=== PATIENT | female | born 1965 | race Caucasian/White ===

== ENCOUNTER 2018-07-16 14:23 | Emergency (ER) | payer OTHER ==
[2018-07-16 14:28] VITALS: BP 126/59; PULSE 54; TEMP 98.8; BMI 27.3
[2018-07-16] MEDS ORDERED: IBUPROFEN 600 MG TABLET (FP) PO ONE ×2 (15:03→15:14)
--- NOTE | 2018-07-16 15:42 | PDOC ---
History of Present Illness - General History Source: Patient Exam Limitations: No Limitations <[place]Mila - Last Filed: 07/16/18 15:59> - History of Present Illness Initial Comments: This patient is a 53 year old female, with PMHx of PA (3 yrs ago), HTN, HLD, who presents with right shoulder pain s/p slipping on ice today at 12:40 pm. She states after she fell, her shoulder was tingling but is no longer tingling. She reports decreased ROM secondary to pain. She did not take anything for the pain she states. Denies loc, hitting head, no headache. 07/16/18 15:43 <Lizet Schaffer - Last Filed: 07/16/18 16:11> - General Chief Complaint: Injury Stated Complaint: right shoulder pain s/p fell during work Past History - Past Medical History Asthma: No COPD: No CHF: No Diabetes: No HTN: Yes Psychiatric Problems: Yes (DEPRESSION/ANXIETY) - Surgical History Appendectomy: Yes Cholecystectomy: Yes Orthopedic Surgery: Yes (knee) - Immunization History Immunization Up to Date: Yes - Suicide/Smoking/Psychosocial Hx Smoking History: Never smoked Have you smoked in the past 12 months: No Number of Cigarettes Smoked Daily: 0 Cigars Per Day: 0 Hx Alcohol Use: No Drug/Substance Use Hx: No Substance Use Type: Prescribed <[place]Mila - Last Filed: 07/16/18 15:59> <Lizet Schaffer - Last Filed: 07/16/18 16:11> - Past Medical History Allergies/Adverse Reactions: Allergies Allergy/AdvReac Type Severity Reaction Status Date / Time No Known Allergies Allergy Verified 07/16/18 14:25 Home Medications: Ambulatory Orders Clonazepam [Klonopin] 1 mg PO PRN PRN 11/11/15 Escitalopram Oxalate [Lexapro -] 20 mg PO DAILY 11/11/15 Aspirin 81 mg PO DAILY 07/16/18 Atorvastatin Ca [Lipitor] 80 mg PO DAILY 07/16/18 Lamotrigine [Lamictal] 100 mg PO HS 07/16/18 Metoprolol Tartrate 25 mg PO DAILY 07/16/18 Review of Systems - Review of Systems Comments:: GENERAL/CONSTITUTIONAL: No fever or chills. No weakness. HEAD, EYES, EARS, NOSE AND THROAT: No change in vision. No ear pain or discharge. No sore throat. CARDIOVASCULAR: No chest pain or shortness of breath. RESPIRATORY: No cough, wheezing, or hemoptysis. GASTROINTESTINAL: No nausea, vomiting, diarrhea or constipation. GENITOURINARY: No dysuria, frequency, or change in urination. MUSCULOSKELETAL: +right shoulder. No neck or back pain. SKIN: No rash NEUROLOGIC: No headache, vertigo, loss of consciousness, or change in strength/ sensation. ENDOCRINE: No increased thirst. No abnormal weight change. HEMATOLOGIC/LYMPHATIC: No anemia, easy bleeding, or history of blood clots. ALLERGIC/IMMUNOLOGIC: No hives or skin allergy. 07/16/18 15:43 <Lizet Schaffer - Last Filed: 07/16/18 16:11> *Physical Exam - Vital Signs Last Vital Signs Temp Pulse Resp BP Pulse Ox 98.8 F 54 L 18 126/59 L 97 07/16/18 14:24 07/16/18 14:24 07/16/18 14:24 07/16/18 14:24 07/16/18 14:24 <Mila Coleman - Last Filed: 07/16/18 15:59> - Vital Signs Last Vital Signs Temp Pulse Resp BP Pulse Ox 98.8 F 54 L 18 126/59 L 97 07/16/18 14:24 07/16/18 14:24 07/16/18 14:24 07/16/18 14:24 07/16/18 14:24 - Physical Exam Comments: GENERAL: Awake, alert, and fully oriented, in no acute distress HEAD: No signs of trauma. NECK: Supple, no lymphadenopathy, JVD, or masses LUNGS: Breath sounds equal, clear to auscultation bilaterally. No wheezes, and no crackles HEART: Regular rate and rhythm, normal S1 and S2, no murmurs, rubs or gallops ABDOMEN: Soft, nontender, normoactive bowel sounds. No guarding, no rebound. No masses EXTREMITIES: Tenderness on palpation of right shoulder, no ecchymosis, no deformity. Full ROM at the elbow & wrist -> non-tender. Neurovascularly intact distally. No edema. No clubbing or cyanosis. No cords, erythema. NEUROLOGICAL: Cranial nerves II through XII grossly intact. Normal speech, normal gait SKIN: Warm, Dry, normal turgor, no rashes or lesions noted. <Lizet Schaffer - Last Filed: 07/16/18 16:11> Moderate Sedation - Procedure Monitoring Vital Signs: Procedure Monitoring Vital Signs Temperature 98.8 F 07/16/18 14:24 Pulse Rate 54 L 07/16/18 14:24 Respiratory Rate 18 07/16/18 14:24 Blood Pressure 126/59 L 07/16/18 14:24 O2 Sat by Pulse Oximetry (%) 97 07/16/18 14:24 <Mila Coleman - Last Filed: 07/16/18 15:59> - Procedure Monitoring Vital Signs: Procedure Monitoring Vital Signs Temperature 98.8 F 07/16/18 14:24 Pulse Rate 54 L 07/16/18 14:24 Respiratory Rate 18 07/16/18 14:24 Blood Pressure 126/59 L 07/16/18 14:24 O2 Sat by Pulse Oximetry (%) 97 07/16/18 14:24 <Lizet Schaffer - Last Filed: 07/16/18 16:11> ED Treatment Course - RADIOLOGY Radiology Studies Ordered: Category Date Time Status SHOULDER-RIGHT [RAD] Stat Radiology 07/16/18 15:02 Taken - Medications Given in the ED: ED Medications Discontinued Medications Generic Name Dose Route Start Last Admin Trade Name Freq PRN Reason Stop Dose Admin Ibuprofen 600 mg 07/16/18 15:03 07/16/18 15:21 Motrin - PO 07/16/18 15:04 600 mg ONCE ONE Administration <Mila Coleman - Last Filed: 07/16/18 15:59> - Medications Given in the ED: ED Medications Discontinued Medications Generic Name Dose Route Start Last Admin Trade Name Freq PRN Reason Stop Dose Admin Ibuprofen 600 mg 07/16/18 15:03 07/16/18 15:21 Motrin - PO 07/16/18 15:04 600 mg ONCE ONE Administration <Lizet Schaffer - Last Filed: 07/16/18 16:11> Medical Decision Making - Medical Decision Making 07/16/18 15:37 53 yo F htn cad, prior PA, HLD, s/p trip and fall on shoulder, ttripeed while walking . landed on arm adducted on right shoulder. c/o rt shoulder pain. pt states pain worse wtih movement, no head trauma. no elbow or wrist pain. no deformity. did not hit her head. did not take anything for pain prior to arrival. xray r/o fracture / discloation. xray negative. for fracture. will dc home with ortho fu. 07/16/18 15:56 <Mlia Coleman - Last Filed: 07/16/18 15:59> *DC/Admit/Observation/Transfer - Discharge Dispostion Decision to Admit order: No <Mila Coleman - Last Filed: 07/16/18 15:59> - Attestations Scribe Attestion: 07/16/18 15:46 Documentation prepared by Lizet Schaffer, acting as medical fee clerk for Mila Coleman MD. <Lizet Schaffer - Last Filed: 07/16/18 16:11> Diagnosis at time of Disposition: Shoulder injury - Discharge Dispostion Disposition: HOME Condition at time of disposition: Improved - Referrals Referrals: Jalil Baptiste MD [Staff Physician] - - Patient Instructions Printed Discharge Instructions: How to Use a Sling, Shoulder Sprain Additional Instructions: your xray is negative for fracturel. you can take ibuprofen 600 mg every 8 hrs as needed for pain. return for any problems or concerns. for persistant pain you can follow up with orthopedics. call Dr Baptiste to arrange for follow up as needed within 1 - 2 weeks.
== END 2018-07-16 16:07 | disposition home or self-care (01) ==
LOC: FER 14:23
DX: M25.511 Pain in right shoulder (principal); W00.0XXA Fall on same level due to ice and snow, initial encounter; Y93.89 Activity, other specified; Y92.410 Unspecified street and highway as the place of occurrence of the external cause; I25.2 Old myocardial infarction; E78.5 Hyperlipidemia, unspecified
CPT/HCPCS: 73030-TC-RT-FY; 99282-25

== ENCOUNTER 2023-11-21 15:10 | Emergency (ER) | payer OTHER ==
[2023-11-21 15:25] VITALS: BP 139/70; PULSE 79; RESP 16; TEMP 98.3; BMI 28.1
[2023-11-21 17:47] LABS: HEMATOCRIT 38.4 % (32.4-45.2); HEMOGLOBIN 12.8 G/dL (10.7-15.3); MCH 30.5 pg (25.7-33.7); MCHC 33.4 g/dl (32.0-36.0); MEAN CELL VOLUME 91.1 fl (80-96); MEAN PLT VOLUME 8.3 fl (7.5-11.1); PLATELET COUNT 226.3 10^3/uL (134-434); RBC 4.21 10^6/uL (3.60-5.2); RDW 14.4 % (11.6-15.6); WHITE BLOOD COUNT 7.8 10^3/uL (4.0-10.8)
[2023-11-21 17:53] LABS: PLATELET ESTIMATE ADEQUATE
[2023-11-21 18:03] LABS: ALBUMIN 4.9 g/dl (3.4-5.0); BILIRUBIN,TOTAL 0.5 mg/dl (0.2-1); CALCIUM 9.8 mg/dl (8.5-10.1); CREATININE 0.7 mg/dl (0.6-1.3); POTASSIUM 3.6 mmol/L (3.5-5.1); TOT PROT 7.2 g/dl (6.4-8.2)
== END 2023-11-21 20:06 | disposition home or self-care (01) ==
LOC: FER 15:10
DX: R60.0 Localized edema (principal)
CPT/HCPCS: 36415; 80053; 83880; 84484; 85027; 93005; 93970-TC; 99285-25